=== PATIENT | male | born 1985 | race Caucasian/White ===

== ENCOUNTER 2017-08-07 00:54 | Emergency (ER) | payer BC ==
[~2017-08-07] VITALS: Ht 182.9 cm; Wt 74.8 kg
[2017-08-07 01:20] VITALS: BP 157/83
[2017-08-07 02:04] VITALS: BP 157/83
== END 2017-08-07 02:04 | disposition home or self-care (01) ==
LOC: EMR 01:48
DX: R51 Headache (principal)
CPT/HCPCS: 99282